=== PATIENT | female | born 1960 | race African-American/Black ===

== ENCOUNTER → 2018-07-01 | Outpatient (CLI) | payer OTHER ==
[~2018-07-01] MED LIST: NORCO 5-325 TA1 EACH PO; TOPROL XL100 MG; ZOFRAN ODT4 MG PO
== END ==
LOC: M.CT 12:42
DX: I25.10 Atherosclerotic heart disease of native coronary artery without angina pectoris (principal)

== ENCOUNTER → 2018-07-01 | Outpatient (CLI) | payer OTHER ==
--- NOTE | 2018-07-04 09:09 | TST ---
[place] [address] [facility] STRESS TEST Name: OG PATEL Room: [facility]#: [id number] Admission: 07/01/18 Attend Phys: Joe Barros, Discharge: Date of : 64 Date of Service: 07/01/18 1405 Report #: [id number] THIS REPORT FOR: //name// CC: Joe Baker DATE OF SERVICE: 07/01/2018 INDICATIONS: Exercise stress test was requested in this patient with a history of chest pain. RESULTS: The patient had a pretest heart rate of 75, blood pressure 151/105. The patient was able to exercise for 5 minutes and 9 seconds and achieved a peak heart rate of 154, which was greater than 90% of maximum predicted heart rate for the patient's age. Peak blood pressure is 211/112. In recovery, the patient had a heart rate of 97 and blood pressure 145/103. The patient denied chest pain with exercise, which was terminated because of fatigue and shortness of breath. The patient's resting ECG showed a normal sinus rhythm and there was no significant ST nor T-wave change noted at baseline. With exercise, there was J-point depression, but there was no significant ST-segment depression at 80 milliseconds after the J-point. The patient was noted to have occasional PVC with exercise. There was a ventricular triplet noted with exercise. IMPRESSION: 1. Poor exercise tolerance. 2. No ischemic ST-segment changes noted with exercise. 3. Occasional premature ventricular contractions noted with exercise and during recovery. 4. Negative exercise stress test for myocardial ischemia. 5. Low risk exercise stress test for predicting future cardiac events. <ELECTRONICALLY SIGNED> By: Gil Diehl MD, FACC 07/04/18 0909 1405 2125 Evan Petersen MD, FACC /nt
== END ==
LOC: M.CRD 12:35
DX: I10 Essential (primary) hypertension (principal); R07.89 Other chest pain